=== PATIENT | female | born 1950 | race Caucasian/White ===

== ENCOUNTER 2016-12-29 16:24 | Emergency (ER) | payer MEDICARE ==
[2016-12-29 16:35] VITALS: TEMP 98.1
[2016-12-29] MEDS ORDERED: SODIUM CHLORIDE 0.9% 500 ML IV STA (17:28)
[2016-12-29] MEDS ORDERED: MECLIZINE 12.5 MG TAB PO STA (17:45)
[2016-12-29 18:12] LABS: Basophils % (A) 1 %; CH 21.6; CHCM 28.5; Eosinophils # (A) 0.1 k/uL (0-0.7); Eosinophils % (A) 2 %; HCT 29.6 % (34.0-46.0); HDW 3.33; HGB 8.4 gm/dL (11.4-16.0); Hypochromasia Marked; Luc # (Auto) 0.17; Luc % (Auto) 2; Lymphocytes # (A) 2.1 k/uL (1.0-4.8); Lymphocytes % (A) 29 %; MCH 21.6 pg (25.0-35.0); MCHC 28.3 g/dL (31.0-37.0); MCV 76.3 fL (80.0-100.0); Mean Platelet Volume 7.7; Microcytosis Slight; Monocytes # (A) 0.4 k/uL (0-1.0); Monocytes % (A) 5 %; Neutrophils # (A) 4.3 k/uL (1.3-7.7); Neutrophils % (A) 61 %; RBC 3.88 m/uL (3.80-5.40); RDW 14.7 % (11.5-15.5); WBC 7.1 k/uL (3.8-10.6); WBC (Perox) 6.93
[2016-12-29 18:21] LABS: ALT 19 U/L (9-52); AST 19 U/L (14-36); Alkaline Phosphatase 87 U/L (38-126); Anion Gap 11 mmol/L; Blood Urea Nitrogen 14 mg/dL (7-17); Calcium 9.1 mg/dL (8.4-10.2); Carbon Dioxide 21 mmol/L (22-30); Chloride 108 mmol/L (98-107); Glucose 103 mg/dL (74-99); Non-African American GFR(MDRD) >60 (>60 ml/min/1.73 sqM); Potassium 4.2 mmol/L (3.5-5.1); Sodium 140 mmol/L (137-145); Total Bilirubin 0.4 mg/dL (0.2-1.3); Total Protein 7.3 g/dL (6.3-8.2)
--- NOTE | 2016-12-29 18:29 | XR ---
EXAMINATION TYPE: XR chest 2V DATE OF EXAM: 12/29/2016 6:20 PM COMPARISON: NONE HISTORY: Hypertension TECHNIQUE: Frontal and lateral views of the chest are obtained. FINDINGS: Heart is normal. Lungs are clear of consolidation. There is small hiatal hernia. Thoracic aorta is atheromatous. There are no hilar masses. Bony thorax is intact. IMPRESSION: No active cardiopulmonary disease. Normal heart.
--- NOTE | 2016-12-29 18:32 | ED ---
Dizziness HPI - General Chief Complaint: Dizziness Stated Complaint: Dizziness Time Seen by Provider: 12/29/16 17:28 Source: patient, RN notes reviewed Mode of arrival: ambulatory Limitations: no limitations - History of Present Illness Initial Comments: 66-year-old female presented emergency department with chief complaint of intermittent dizziness. Patient states that she has noticed it she's had some dizziness and dizzy spells over the last week. She states associated with movements. She states sometimes when she stands up or if she walks and turns quickly she states she feels off balance. Patient denies any chest pain but states that she's had some shortness of breath. Patient states that she has a history of shortness of breath and does not feel much worse than usual. Patient denies any pleuritic chest pain him a headache, blurred vision or any focal weakness. Patient did have lab work by her primary care physician last week which revealed hemoglobin of 8.0. Patient states she has had a history of anemia with transfusion. Patient denies any melena, rectal bleeding, hematemesis copremesis. Patient states that she was just concerned because of the dizziness. She has no history of vertigo denies any sinus congestion - Related Data Home Medications Medication Instructions Recorded Confirmed LORazepam [Ativan] 1 mg PO HS 10/10/14 12/29/16 Potassium Chloride [Klor-Con 20] 20 meq PO DAILY 10/10/14 12/29/16 Atenolol [Tenormin] 25 mg PO DAILY 12/05/14 12/29/16 Losartan [Cozaar] 50 mg PO DAILY 12/29/16 12/29/16 PARoxetine HCL [Paxil] 40 mg PO DAILY 12/29/16 12/29/16 Previous Rx's Medication Instructions Recorded Ferrous Sulfate [Feosol] 325 mg PO DAILY #30 tab 12/29/16 Meclizine [Antivert] 25 mg PO TID PRN #15 tab 12/29/16 Allergies Allergy/AdvReac Type Severity Reaction Status Date / Time No Known Allergies Allergy Verified 12/29/16 18:08 Review of Systems ROS Statement: Those systems with pertinent positive or pertinent negative responses have been documented in the HPI. ROS Other: All systems not noted in ROS Statement are negative. Past Medical History Past Medical History: GERD/Reflux, Hypertension, Osteoarthritis (OA), Skin Disorder Additional Past Medical History / Comment(s): PAST HX ANEMIA, large lipoma right side of neck History of Any Multi-Drug Resistant Organisms: None Reported Past Surgical History: Joint Replacement Additional Past Surgical History / Comment(s): 10/13/14 Total L knee arthroplasty , BILAT BREAST LUMPECTOMIES(BENIGN). COLONOSCOPY Past Anesthesia/Blood Transfusion Reactions: No Reported Reaction Past Psychological History: Anxiety Additional Psychological History / Comment(s): Pt lives in a one level home. Pt is very independent. She drives a car. Smoking Status: Current some day smoker Past Alcohol Use History: Occasional Past Drug Use History: None Reported - Past Family History Brother(s) Family Medical History: Cancer Mother Family Medical History: Dementia, Hypertension Additional Family Medical History / Comment(s): parkinson's, Mother at age 81 or 82 yrs old. Father Family Medical History: No Reported History, Myocardial Infarction ([place]) Additional Family Medical History / Comment(s): Father at age 86yrs of [place] General Exam Limitations: no limitations General appearance: alert, in no apparent distress Head exam: Present: atraumatic, normocephalic, normal inspection Eye exam: Present: normal appearance, PERRL, EOMI. Absent: scleral icterus, conjunctival injection, periorbital swelling ENT exam: Present: normal exam, normal oropharynx, mucous membranes moist, TM's normal bilaterally Neck exam: Present: normal inspection, full ROM. Absent: tenderness, meningismus, lymphadenopathy Respiratory exam: Present: normal lung sounds bilaterally. Absent: respiratory distress, wheezes, rales, rhonchi, stridor Cardiovascular Exam: Present: regular rate, normal rhythm, normal heart sounds. Absent: systolic murmur, diastolic murmur, rubs, gallop, clicks GI/Abdominal exam: Present: soft, normal bowel sounds. Absent: distended, tenderness, guarding, rebound, rigid Neurological exam: Present: alert, oriented X3, CN II-XII intact, reflexes normal. Absent: motor sensory deficit Skin exam: Present: warm, dry, intact, normal color. Absent: rash Course Vital Signs 12/29/16 12/29/16 16:33 18:16 Temperature 98.1 F Pulse Rate 82 68 Respiratory 20 16 Rate Blood Pressure 137/66 172/72 O2 Sat by Pulse 100 99 Oximetry EKG Findings - EKG Comments: EKG Findings:: EKG performed at 17:57 normal sinus rhythm with a rate of 66, MA interval 130, QRS duration 86, QT/QTC 424/444 Medical Decision Making - Medical Decision Making 66-year-old female presented for airman dizziness, fatigue. Patient is feeling better after Antivert and has ambulated well here. Patient's hemoglobin is 8.4 up from a 8.1 last week. Patient appears [place] Sick anemia. She'll be started on iron at this time. Patient also has vitamin D insufficiency. Patient is advised to take vitamin D3. Patient will be prescribed iron at this time. Patient's will be discharged with Antivert and will follow-up with Dr. Bellamy at the beginning of next week. Return parameters were discussed family in the room agrees to plan. - Lab Data Result diagrams: 12/29/16 18:00 12/29/16 18:00 Lab Results 12/29/16 12/29/16 12/29/16 Range/Units 18:00 18:00 18:00 WBC 7.1 (3.8-10.6) k/uL RBC 3.88 (3.80-5.40) m/uL Hgb 8.4 L (11.4-16.0) gm/dL Hct 29.6 L (34.0-46.0) % MCV 76.3 L (80.0-100.0) fL MCH 21.6 L (25.0-35.0) pg MCHC 28.3 L (31.0-37.0) g/dL RDW 14.7 (11.5-15.5) % Plt Count 359 (150-450) k/uL Neutrophils % 61 % Lymphocytes % 29 % Monocytes % 5 % Eosinophils % 2 % Basophils % 1 % Neutrophils # 4.3 (1.3-7.7) k/uL Lymphocytes # 2.1 (1.0-4.8) k/uL Monocytes # 0.4 (0-1.0) k/uL Eosinophils # 0.1 (0-0.7) k/uL Basophils # 0.0 (0-0.2) k/uL Hypochromasia Marked Microcytosis Slight D-Dimer 0.48 (<0.60) mg/L FEU Sodium 140 (137-145) mmol/L Potassium 4.2 (3.5-5.1) mmol/L Chloride 108 H (98-107) mmol/L Carbon Dioxide 21 L (22-30) mmol/L Anion Gap 11 mmol/L BUN 14 (7-17) mg/dL Creatinine 0.76 (0.52-1.04) mg/dL Est GFR (MDRD) Af Amer >60 (>60 ml/min/1.73 sqM) Est GFR (MDRD) Non-Af >60 (>60 ml/min/1.73 sqM) Glucose 103 H (74-99) mg/dL Calcium 9.1 (8.4-10.2) mg/dL Total Bilirubin 0.4 (0.2-1.3) mg/dL AST 19 (14-36) U/L ALT 19 (9-52) U/L Alkaline Phosphatase 87 (38-126) U/L Troponin I (0.000-0.034) ng/mL Total Protein 7.3 (6.3-8.2) g/dL Albumin 4.3 (3.5-5.0) g/dL Urine Color Urine Appearance (Clear) Urine pH (5.0-8.0) Ur Specific [place] (1.001-1.035) Urine Protein (Negative) Urine Glucose (UA) (Negative) Urine Ketones (Negative) Urine Blood (Negative) Urine Nitrite (Negative) Urine Bilirubin (Negative) Urine Urobilinogen (<2.0) mg/dL Ur Leukocyte Esterase (Negative) Urine RBC (0-5) /hpf Urine WBC (0-5) /hpf Ur Squamous Epith Cells (0-4) /hpf Amorphous Sediment (None) /hpf Urine Bacteria (None) /hpf Urine Mucus (None) /hpf 12/29/16 12/29/16 Range/Units 18:00 18:15 WBC (3.8-10.6) k/uL RBC (3.80-5.40) m/uL Hgb (11.4-16.0) gm/dL Hct (34.0-46.0) % MCV (80.0-100.0) fL MCH (25.0-35.0) pg MCHC (31.0-37.0) g/dL RDW (11.5-15.5) % Plt Count (150-450) k/uL Neutrophils % % Lymphocytes % % Monocytes % % Eosinophils % % Basophils % % Neutrophils # (1.3-7.7) k/uL Lymphocytes # (1.0-4.8) k/uL Monocytes # (0-1.0) k/uL Eosinophils # (0-0.7) k/uL Basophils # (0-0.2) k/uL Hypochromasia Microcytosis D-Dimer (<0.60) mg/L FEU Sodium (137-145) mmol/L Potassium (3.5-5.1) mmol/L Chloride (98-107) mmol/L Carbon Dioxide (22-30) mmol/L Anion Gap mmol/L BUN (7-17) mg/dL Creatinine (0.52-1.04) mg/dL Est GFR (MDRD) Af Amer (>60 ml/min/1.73 sqM) Est GFR (MDRD) Non-Af (>60 ml/min/1.73 sqM) Glucose (74-99) mg/dL Calcium (8.4-10.2) mg/dL Total Bilirubin (0.2-1.3) mg/dL AST (14-36) U/L ALT (9-52) U/L Alkaline Phosphatase (38-126) U/L Troponin I <0.012 (0.000-0.034) ng/mL Total Protein (6.3-8.2) g/dL Albumin (3.5-5.0) g/dL Urine Color Light Yellow Urine Appearance Clear (Clear) Urine pH 6.0 (5.0-8.0) Ur Specific [place] 1.004 (1.001-1.035) Urine Protein Negative (Negative) Urine Glucose (UA) Negative (Negative) Urine Ketones Negative (Negative) Urine Blood Negative (Negative) Urine Nitrite Negative (Negative) Urine Bilirubin Negative (Negative) Urine Urobilinogen <2.0 (<2.0) mg/dL Ur Leukocyte Esterase Trace H (Negative) Urine RBC 1 (0-5) /hpf Urine WBC 5 (0-5) /hpf Ur Squamous Epith Cells 4 (0-4) /hpf Amorphous Sediment Rare H (None) /hpf Urine Bacteria Many H (None) /hpf Urine Mucus Rare H (None) /hpf Disposition Clinical Impression: Vertigo, Anemia, Vitamin D insufficiency Disposition: HOME SELF-CARE Condition: Stable Instructions: Dizziness (ED) Additional Instructions: Please return to the Emergency Department if symptoms worsen or any other concerns. Take [id number] vitamin D3. Prescriptions: Ferrous Sulfate [Feosol] 325 mg PO DAILY #30 tab Meclizine [Antivert] 25 mg PO TID PRN #15 tab PRN Reason: Vertigo Time of Disposition: 19:23
[2016-12-29 18:45] LABS: Amorphous Sediment,Urine Rare /hpf; Appearance,Urine Clear (Clear); Bacteria,Urine Many /hpf; Bilirubin,Urine Negative (Negative); Glucose,Urine (UA) Negative (Negative); Ketones,Urine Negative (Negative); Leukocyte Esterase,Urine Trace (Negative); Mucus,Urine Rare /hpf; Nitrite,Urine Negative (Negative); Particle Count 2380; Protein,Urine Negative (Negative); RBC,Urine 1 /hpf (0-5); Specific Gravity,Urine 1.004 (1.001-1.035); Squamous Epithelial Cell,Urine 4 /hpf (0-4); UA Billing (MACRO vs. MICRO) MICRO; Urobilinogen,Urine <2.0 mg/dL (<2.0); WBC,Urine 5 /hpf (0-5)
[2016-12-29 19:22] VITALS: BP 164/71; PULSE 71; RESP 18
== END 2016-12-29 19:31 | disposition home or self-care (01) ==
LOC: EC 16:24
DX: D64.9 Anemia, unspecified (principal); E55.9 Vitamin D deficiency, unspecified; I10 Essential (primary) hypertension; F41.9 Anxiety disorder, unspecified; Z79.899 Other long term (current) drug therapy; F17.200 Nicotine dependence, unspecified, uncomplicated
CPT/HCPCS: 36415; 71020; 80053; 81001; 84484; 85025; 85379; 93005; 96360; 99284

== ENCOUNTER 2018-01-17 08:39 | Day surgery (SDC) | payer MEDICARE ==
[2018-01-16 14:14] VITALS: BMI 28.3
[~2018-01-17 08:39] MED LIST: BUPIVACAINE (PF) 0.5% 30 ML VIAL SQ ONE; DEXAMETHASONE SOD PHOSPHATE 10 MG/ML 1 ML VIAL IV ONE; HEPARIN SODIUM,PORCINE 5,000 UNIT/ML 1 ML VIAL SQ ONE; HYDROmorphone 0.5 MG/0.5 ML SYRINGE IVP PRN; LACTATED RINGERS 1,000 ML IV SCH; MORPHINE SULFATE 2 MG/ML SYRINGE IV PRN; ONDANSETRON 4 MG/2 ML VIAL IVP ONE; ONDANSETRON 4 MG/2 ML VIAL IVP PRN; Pre Op ABX Message 1 EACH MISC MISCELLANE ONE
[2018-01-17] MEDS ORDERED: LACTATED RINGERS 1,000 ML IV ONE (08:51)
[2018-01-17 08:52] VITALS: TEMP 98
--- NOTE | 2018-01-17 09:20 | P.GSHP ---
History of Present Illness H&P Date: 01/17/18 Chief Complaint: Left gluteal lipoma This is a 67-year-old female who is developed a left gluteal mass. Patient presents today for excision of left gluteal lipoma. Past Medical History Past Medical History: GERD/Reflux, Hypertension, Osteoarthritis (OA), Skin Disorder Additional Past Medical History / Comment(s): PAST HX ANEMIA, History of Any Multi-Drug Resistant Organisms: None Reported Past Surgical History: Joint Replacement Additional Past Surgical History / Comment(s): 10/13/14 Total L knee arthroplasty , BILAT BREAST LUMPECTOMIES(BENIGN). COLONOSCOPY; Lipoma removed L side of neck Past Anesthesia/Blood Transfusion Reactions: No Reported Reaction Smoking Status: Current some day smoker - Past Family History Brother(s) Family Medical History: Cancer Mother Family Medical History: Dementia, Hypertension Additional Family Medical History / Comment(s): parkinson's, Mother at age 81 or 82 yrs old. Father Family Medical History: No Reported History, Myocardial Infarction ([place]) Additional Family Medical History / Comment(s): Father at age 86yrs of [place] Medications and Allergies Home Medications Medication Instructions Recorded Confirmed Type LORazepam [Ativan] 1 mg PO HS 10/10/14 01/16/18 History Potassium Chloride [Klor-Con 20] 20 meq PO DAILY 10/10/14 01/16/18 History Atenolol [Tenormin] 25 mg PO HS 12/05/14 01/16/18 History Losartan [Cozaar] 50 mg PO DAILY 12/29/16 01/16/18 History Meclizine [Antivert] 25 mg PO TID PRN #15 tab 12/29/16 01/16/18 Rx PARoxetine HCL [Paxil] 40 mg PO DAILY 12/29/16 01/16/18 History Allergies Allergy/AdvReac Type Severity Reaction Status Date / Time No Known Allergies Allergy Verified 01/16/18 14:07 Surgical - Exam Vital Signs Temp Pulse Resp BP Pulse Ox 98.0 F 89 18 176/81 99 01/17/18 08:51 01/17/18 08:51 01/17/18 08:51 01/17/18 08:51 01/17/18 08:51 - General well developed, no distress - Eyes PERRL - ENT normal pinna - Neck no masses - Respiratory normal expansion - Cardiovascular Rhythm: regular - Abdomen Abdomen: soft - Integumentary 5 cm left gluteal lipoma in the upper outer quadrant Assessment and Plan Assessment: Left gluteal lipoma. We'll perform excision.
[2018-01-17] MEDS ORDERED: MIDAZOLAM 2 MG/2 ML VIAL ONE (09:27)
[2018-01-17] MEDS ORDERED: fentaNYL (PF) 50 MCG/ML 2 ML AMP ONE (09:27)
[2018-01-17] MEDS ORDERED: PROPOFOL 10 MG/ML 20 ML VIAL IV ONE (09:27)
[2018-01-17] MEDS ORDERED: SODIUM CHLORIDE 0.9% 50 ML with ceFAZolin 1,000 MG IV ONE ×2 (09:36)
--- NOTE | 2018-01-17 10:09 | P.OP ---
Date of Procedure: 01/17/18 Preoperative Diagnosis: Left gluteal lipoma Postoperative Diagnosis: Left gluteal lipoma Procedure(s) Performed: Excision of left gluteal lipoma Anesthesia: MAC Surgeon: Mykel Clayton Estimated Blood Loss (ml): 5 Pathology: other (Left gluteal lipoma) Condition: stable Disposition: PACU Description of Procedure: The patient's placed on the operative table in the lateral position. She received IV sedation. Her left buttock was prepped and draped usual sterile fashion. The skin was anesthetized 1% local Xylocaine. Using a 15 blade skin was incised. Then using electrocautery and sharp and blunt dissection the gluteal lipoma was dissected free. The lipoma measured approximately 5 x 10 cm. The Bovie hemostasis. Skin was closed interrupted 3-0 Monocryl suture. Dermabond was applied. Patient top procedure well and was sent to recovery in stable condition.
[2018-01-17 10:33] VITALS: BP 122/79; PULSE 80; RESP 16
== END 2018-01-17 10:58 | disposition home or self-care (01) ==
LOC: OR 08:39
PROVIDERS: ATTEND Surgery
DX: D17.1 Benign lipomatous neoplasm of skin and subcutaneous tissue of trunk (principal); K21.9 Gastro-esophageal reflux disease without esophagitis; I10 Essential (primary) hypertension; F17.210 Nicotine dependence, cigarettes, uncomplicated; F41.9 Anxiety disorder, unspecified; M19.90 Unspecified osteoarthritis, unspecified site; Z79.899 Other long term (current) drug therapy
CPT/HCPCS: 88304; 11406; J2250; J1644; J1100; J2405; J3010; J0690; J2704

== ENCOUNTER 2018-02-16 12:02 | Inpatient (IN) | payer MEDICARE ==
[2018-02-16] MEDS ORDERED: SODIUM CHLORIDE 0.9% 500 ML IV STA (12:28)
--- NOTE | 2018-02-16 12:33 | ED ---
General Adult HPI - General Source: patient, RN notes reviewed Mode of arrival: ambulatory Limitations: no limitations <Dariusz Johnson - Last Filed: 02/16/18 14:40> <Adria Morales - Last Filed: 02/16/18 19:00> - General Chief complaint: Recheck/Abnormal Lab/Rx Stated complaint: Abnormal Labs Time Seen by Provider: 02/16/18 12:15 - History of Present Illness Initial comments: This is a 67-year-old female presents emergency Department complaining of feeling dizzy and Shortness of breath lately. Patient states his been getting progressively worse. Patient states she's also had some black stools for the last couple of months. Patient states she has been anemic many years ago but does not know why. Patient denies any blood thinners. Patient denies any abdominal pain. Patient states she is short of breath but has no chest pain and no palpitations. Patient states heShortness of breath gets worse with exertion. Patient denies any palpitations. Patient denies any recent fever chills or cough. Patient denies headache. Patient denies lightheadedness currently but she gets up she feels as though she becomes very dizzy. (Dariusz Johnson) - Related Data Home Medications Medication Instructions Recorded Confirmed LORazepam [Ativan] 1 mg PO HS 10/10/14 02/16/18 Potassium Chloride [Klor-Con 20] 20 meq PO DAILY 10/10/14 02/16/18 Atenolol [Tenormin] 25 mg PO HS 12/05/14 02/16/18 Losartan [Cozaar] 50 mg PO DAILY 12/29/16 02/16/18 PARoxetine HCL [Paxil] 40 mg PO DAILY 12/29/16 02/16/18 Aspirin 81 mg PO DAILY 02/16/18 02/16/18 Ibuprofen [Motrin Ib] 400 mg PO Q4H PRN 02/16/18 02/16/18 Allergies Allergy/AdvReac Type Severity Reaction Status Date / Time acetaminophen AdvReac Unknown Verified 02/16/18 12:32 [From Darvocet-N] propoxyphene AdvReac Unknown Verified 02/16/18 12:32 [From Darvocet-N] Review of Systems ROS Other: All systems not noted in ROS Statement are negative. <Dariusz Johnson - Last Filed: 02/16/18 14:40> ROS Other: All systems not noted in ROS Statement are negative. <Adria Morales - Last Filed: 02/16/18 19:00> ROS Statement: Those systems with pertinent positive or pertinent negative responses have been documented in the HPI. Past Medical History Past Medical History: GERD/Reflux, Hypertension, Osteoarthritis (OA), Skin Disorder Additional Past Medical History / Comment(s): PAST HX ANEMIA, History of Any Multi-Drug Resistant Organisms: None Reported Past Surgical History: Joint Replacement Additional Past Surgical History / Comment(s): 10/13/14 Total L knee arthroplasty , BILAT BREAST LUMPECTOMIES(BENIGN). COLONOSCOPY; Lipoma removed L side of neck Past Anesthesia/Blood Transfusion Reactions: No Reported Reaction Past Psychological History: Anxiety Smoking Status: Former smoker Past Alcohol Use History: Rare Past Drug Use History: None Reported - Past Family History Brother(s) Family Medical History: Cancer Mother Family Medical History: Dementia, Hypertension Additional Family Medical History / Comment(s): parkinson's, Mother at age 81 or 82 yrs old. Father Family Medical History: No Reported History, Myocardial Infarction ([place]) Additional Family Medical History / Comment(s): Father at age 86yrs of [place] <Dariusz Johnson - Last Filed: 02/16/18 14:40> General Exam Limitations: no limitations <Dariusz Johnson - Last Filed: 02/16/18 14:40> <AndrewAdria - Last Filed: 02/16/18 19:00> - General Exam Comments Initial Comments: GENERAL: Patient is well-developed and well-nourished. Patient is nontoxic and well- hydrated and is in Mild distress. ENT: Neck is soft and supple. No significant lymphadenopathy is noted. Oropharynx is clear. Moist mucous membranes. Neck has full range of motion without eliciting any pain. EYES: The sclera were anicteric and conjunctiva were pink and moist. Extraocular movements were intact and pupils were equal round and reactive to light. Eyelids were unremarkable. PULMONARY: Unlabored respirations. Good breath sounds bilaterally. No audible rales rhonchi or wheezing was noted. CARDIOVASCULAR: There is a regular rate and rhythm without any murmurs gallops or rubs. ABDOMEN: Soft and nontender with normal bowel sounds. No palpable organomegaly was noted. There is no palpable pulsatile mass. SKIN: Skin is clear with no lesions or rashes and otherwise unremarkable. NEUROLOGIC: Patient is alert and oriented x3. Cranial nerves II through XII are grossly intact. Motor and sensory are also intact. Normal speech, volume and content. Symmetrical smile. MUSCULOSKELETAL: Normal extremities with adequate strength and full range of motion. No lower extremity swelling or edema. No calf tenderness. LYMPHATICS: No significant lymphadenopathy is noted PSYCHIATRIC: Normal psychiatric evaluation. Normal interpersonal interactions appears functionally intact in deals appropriately with others. No signs of depression. No signs of anxiety. (Dariusz Johnson) Vital Signs 02/16/18 02/16/18 02/16/18 12:15 12:51 14:09 Temperature 98.4 F Pulse Rate 96 80 94 Respiratory 18 18 18 Rate Blood Pressure 120/69 156/72 168/73 O2 Sat by Pulse 96 96 94 L Oximetry 02/16/18 02/16/18 02/16/18 15:07 15:17 15:47 Temperature 98.8 F 98.2 F 98.1 F Pulse Rate 75 73 82 Respiratory 18 16 18 Rate Blood Pressure 173/79 168/77 168/77 O2 Sat by Pulse 99 100 99 Oximetry 02/16/18 17:15 Temperature 98.4 F Pulse Rate 77 Respiratory 18 Rate Blood Pressure 160/72 O2 Sat by Pulse 100 Oximetry Medical Decision Making - Lab Data Result diagrams: 02/16/18 12:39 02/16/18 12:39 <Dariusz Johnson - Last Filed: 02/16/18 14:40> - Lab Data Result diagrams: 02/16/18 12:39 02/16/18 12:39 <Adria Morales - Last Filed: 02/16/18 19:00> - Medical Decision Making Patient is anemic at 6.6 and ordered 1 unit of packed red blood cells I spoke with because he agreed to admit the patient admitted the patient I wrote admitting orders I continued CBCs every 6 hours tract hemoglobin. (Dariusz Johnson) - Lab Data Lab Results 02/16/18 02/16/18 02/16/18 Range/Units 12:39 12:39 12:39 WBC 7.2 (3.8-10.6) k/uL RBC 3.35 L (3.80-5.40) m/uL Hgb 6.6 L* (11.4-16.0) gm/dL Hct 23.7 L (34.0-46.0) % MCV 70.6 L (80.0-100.0) fL MCH 19.5 L (25.0-35.0) pg MCHC 27.7 L (31.0-37.0) g/dL RDW 15.5 (11.5-15.5) % Plt Count 415 (150-450) k/uL Neutrophils % 66 % Lymphocytes % 20 % Monocytes % 8 % Eosinophils % 4 % Basophils % 1 % Neutrophils # 4.7 (1.3-7.7) k/uL Lymphocytes # 1.5 (1.0-4.8) k/uL Monocytes # 0.5 (0-1.0) k/uL Eosinophils # 0.3 (0-0.7) k/uL Basophils # 0.0 (0-0.2) k/uL Hypochromasia Marked Poikilocytosis Slight Microcytosis Moderate PT (9.0-12.0) sec INR (<1.2) APTT (22.0-30.0) sec Sodium 140 (137-145) mmol/L Potassium 4.2 (3.5-5.1) mmol/L Chloride 110 H (98-107) mmol/L Carbon Dioxide 17 L (22-30) mmol/L Anion Gap 13 mmol/L BUN 13 (7-17) mg/dL Creatinine 0.84 (0.52-1.04) mg/dL Est GFR (CKD-EPI)AfAm 82 (>60 ml/min/1.73 sqM) Est GFR (CKD-EPI)NonAf 71 (>60 ml/min/1.73 sqM) Glucose 104 H (74-99) mg/dL Calcium 8.6 (8.4-10.2) mg/dL Magnesium 1.9 (1.6-2.3) mg/dL Total Bilirubin 0.2 (0.2-1.3) mg/dL AST 21 (14-36) U/L ALT 18 (9-52) U/L Alkaline Phosphatase 67 (38-126) U/L Total Creatine Kinase 33 (30-135) U/L CK-MB (CK-2) 0.3 (0.0-2.4) ng/mL CK-MB (CK-2) Rel Index 0.9 Troponin I <0.012 (0.000-0.034) ng/mL Total Protein 5.9 L (6.3-8.2) g/dL Albumin 3.6 (3.5-5.0) g/dL Stool Occult Blood (Negative) Blood Type Blood Type Recheck Antibody Screen Crossmatch Spec Expiration Date 02/16/18 02/16/18 02/16/18 Range/Units 12:39 12:39 13:48 WBC (3.8-10.6) k/uL RBC (3.80-5.40) m/uL Hgb (11.4-16.0) gm/dL Hct (34.0-46.0) % MCV (80.0-100.0) fL MCH (25.0-35.0) pg MCHC (31.0-37.0) g/dL RDW (11.5-15.5) % Plt Count (150-450) k/uL Neutrophils % % Lymphocytes % % Monocytes % % Eosinophils % % Basophils % % Neutrophils # (1.3-7.7) k/uL Lymphocytes # (1.0-4.8) k/uL Monocytes # (0-1.0) k/uL Eosinophils # (0-0.7) k/uL Basophils # (0-0.2) k/uL Hypochromasia Poikilocytosis Microcytosis PT 9.9 (9.0-12.0) sec INR 1.0 (<1.2) APTT 20.6 L (22.0-30.0) sec Sodium (137-145) mmol/L Potassium (3.5-5.1) mmol/L Chloride (98-107) mmol/L Carbon Dioxide (22-30) mmol/L Anion Gap mmol/L BUN (7-17) mg/dL Creatinine (0.52-1.04) mg/dL Est GFR (CKD-EPI)AfAm (>60 ml/min/1.73 sqM) Est GFR (CKD-EPI)NonAf (>60 ml/min/1.73 sqM) Glucose (74-99) mg/dL Calcium (8.4-10.2) mg/dL Magnesium (1.6-2.3) mg/dL Total Bilirubin (0.2-1.3) mg/dL AST (14-36) U/L ALT (9-52) U/L Alkaline Phosphatase (38-126) U/L Total Creatine Kinase (30-135) U/L CK-MB (CK-2) (0.0-2.4) ng/mL CK-MB (CK-2) Rel Index Troponin I (0.000-0.034) ng/mL Total Protein (6.3-8.2) g/dL Albumin (3.5-5.0) g/dL Stool Occult Blood Negative (Negative) Blood Type O Positive Blood Type Recheck No Antibody Screen NEGATIVE Crossmatch See Detail Spec Expiration Date 02/19/2018 - 5179 Critical Care Time Critical Care Time: Yes Total Critical Care Time: 35 <Dariusz Johnson - Last Filed: 02/16/18 14:40> Disposition Time of Disposition: 14:40 <Dariusz Johnson - Last Filed: 02/16/18 14:40> <Adria Morales - Last Filed: 02/16/18 19:00> Clinical Impression: Anemia Disposition: ADMITTED IP TO THIS [facility] Condition: Stable Referrals: Mikhail Bellamy DO [Primary Care Provider] - 1-2 days
[2018-02-16 13:12] LABS: Prothrombin Time 9.9 sec (9.0-12.0)
[2018-02-16 13:13] LABS: Albumin 3.6 g/dL (3.5-5.0); Calcium 8.6 mg/dL (8.4-10.2); Magnesium 1.9 mg/dL (1.6-2.3); Potassium 4.2 mmol/L (3.5-5.1); Total Bilirubin 0.2 mg/dL (0.2-1.3); Total Protein 5.9 g/dL (6.3-8.2)
[2018-02-16 13:16] LABS: Basophils % (A) 1 %; Eosinophils # (A) 0.3 k/uL (0-0.7); Eosinophils % (A) 4 %; HCT 23.7 % (34.0-46.0); Hypochromasia Marked; Lymphocytes # (A) 1.5 k/uL (1.0-4.8); Lymphocytes % (A) 20 %; MCH 19.5 pg (25.0-35.0); MCHC 27.7 g/dL (31.0-37.0); MCV 70.6 fL (80.0-100.0); Mean Platelet Volume 6.5; Microcytosis Moderate; Monocytes # (A) 0.5 k/uL (0-1.0); Monocytes % (A) 8 %; Neutrophils # (A) 4.7 k/uL (1.3-7.7); Neutrophils % (A) 66 %; Partial Thromboplastin Time 20.6 sec (22.0-30.0); Platelet Count 415 k/uL (150-450); Poikilocytosis Slight; RBC 3.35 m/uL (3.80-5.40); RDW 15.5 % (11.5-15.5); WBC 7.2 k/uL (3.8-10.6)
[2018-02-16 13:22] LABS: Creatine Kinase 33 U/L (30-135)
[2018-02-16 13:26] LABS: HGB 6.6 gm/dL (11.4-16.0)
[2018-02-16 13:34] LABS: Creatine Kinase MB 0.3 ng/mL (0.0-2.4); Troponin I <0.012 ng/mL (0.000-0.034)
[2018-02-16] MEDS ORDERED: LOSARTAN 50 MG TAB PO STA (19:32)
[2018-02-16 19:45] LABS: Anisocytosis Slight; Basophils % (A) 1 %; Eosinophils # (A) 0.3 k/uL (0-0.7); Eosinophils % (A) 4 %; HCT 27.5 % (34.0-46.0); HGB 7.9 gm/dL (11.4-16.0); Hypochromasia Marked; Lymphocytes # (A) 2.1 k/uL (1.0-4.8); Lymphocytes % (A) 24 %; MCH 20.7 pg (25.0-35.0); MCHC 28.7 g/dL (31.0-37.0); MCV 72.1 fL (80.0-100.0); Mean Platelet Volume 6.2; Microcytosis Moderate; Monocytes # (A) 0.6 k/uL (0-1.0); Monocytes % (A) 7 %; Neutrophils # (A) 5.5 k/uL (1.3-7.7); Neutrophils % (A) 63 %; Platelet Count 388 k/uL (150-450); Poikilocytosis Marked; RBC 3.81 m/uL (3.80-5.40); RDW 16.1 % (11.5-15.5); WBC 8.8 k/uL (3.8-10.6)
[2018-02-16] MEDS ORDERED: LORazepam 1 MG TAB PO SCH (23:45)
[2018-02-16] MEDS ORDERED: PARoxetine 20 MG TAB PO SCH (23:45)
[2018-02-16] MEDS ORDERED: ACETAMINOPHEN TAB 325 MG TAB PO PRN (23:50)
[2018-02-17] MEDS: ATENOLOL 25 MG TAB PO SCH ×2 (01:03→20:39)
[2018-02-17] MEDS: DEXTROSE 5% IN WATER 1,000 ML IV SCH ×2 (01:11→20:39)
[2018-02-17] MEDS ORDERED: PARoxetine 20 MG TAB PO SCH (02:56)
--- NOTE | 2018-02-17 10:32 | CONS ---
CONSULTATION REQUESTING PHYSICIAN: Dr. Mikhail Bellamy REASON FOR CONSULTATION: Severe symptomatic microcytic hypochromic anemia. HISTORY OF PRESENT ILLNESS: The patient is a 67-year-old pleasant white male admitted to the hospital because of progressive weakness, fatigue, tiredness for the last 3 months duration. She has been having intermittent episodes of dizzy spells, crampy lower abdominal pain and dark- colored stools on and off for the last couple of months duration. She has some abdominal discomfort. Has been taking some Motrin and Excedrin for degenerative joint disease. Because of her symptoms, she came into the emergency room and had some labs done in the ER that showed severe anemia with a hemoglobin of 6.6 g/dL, received 2 units of blood transfusion. Hemoglobin is 7.9. She has severe microcytosis suggestive of iron deficiency anemia. The patient recalls having endoscopy and colonoscopy more than 10 years ago. She denies any prior history of peptic ulcer disease. No family history of colorectal neoplasia. PAST MEDICAL HISTORY: Significant for hypertension, anxiety, degenerative joint disease. MEDICATIONS: At home Motrin, K-Bettina, Paxil, Cozaar, Ativan, Tenormin, and aspirin. ALLERGIES: To DARVOCET. SOCIAL HISTORY: No smoking or alcohol use. FAMILY HISTORY: Mother has hypertension. Father had coronary artery disease and [place]. PAST SURGICAL HISTORY: Total knee arthroplasty, bilateral breast lumpectomy, colonoscopy 10 years ago. Lipoma of the left side of the neck removed. REVIEW OF SYSTEMS: Cardiopulmonary: No chest pain, shortness of breath. Genitourinary: No dysuria or hematuria. Musculoskeletal: Unremarkable. Skin: Unremarkable. Endocrine: Unremarkable. Psychiatric: Unremarkable. Neurology unremarkable. ENT vision unremarkable. Constitutional: No recent weight loss. No fever, chills, night sweats. Except she has been complaining of fatigue and weakness. PHYSICAL EXAMINATION: Blood pressure 183/76, pulse 74, temperature 98.8. HEENT examination unremarkable. Conjunctivae pink. Sclerae anicteric. Oral cavity no lesions. Neck no jugular venous distention or lymph node enlargement. Chest was clear to auscultation. HEART: Regular rate and rhythm. ABDOMEN: Soft. Bowel sounds are positive. No organomegaly. Extremities: No pedal edema. Skin no rashes. NEUROLOGIC: Alert and oriented x3. No focal deficits. LABS: Done from today, WBC is 8.8, yesterday was 6.6, MCV 70, platelets 4185, PTT INR is within normal limits. Basic metabolic panel is within normal limits. BUN 13, creatinine 0.8. Today, hemoglobin is 7.9. IMPRESSION: Severe microcytic hypochromic anemia, most likely secondary to occult gastrointestinal blood loss/iron deficiency anemia. Clinically no active bleeding. She has been having intermittent dark-colored stools for the last 3 months duration. Last EGD colonoscopy was more than 10 years ago. RECOMMENDATIONS: Proceed with EGD and colonoscopy tomorrow. Discussed with the patient risks, benefits, and complications of the procedure and she is agreeable to it. The family is present at the bedside. All questions answered. Thank you for this consultation. DUSTIN / IJN: [id number] /
[2018-02-17 11:25] LABS: Anisocytosis Slight; Basophils % (A) 1 %; Eosinophils # (A) 0.3 k/uL (0-0.7); Eosinophils % (A) 5 %; HCT 25.9 % (34.0-46.0); HGB 7.7 gm/dL (11.4-16.0); Hypochromasia Marked; Lymphocytes # (A) 1.1 k/uL (1.0-4.8); Lymphocytes % (A) 18 %; MCH 20.8 pg (25.0-35.0); MCHC 29.6 g/dL (31.0-37.0); MCV 70.3 fL (80.0-100.0); Mean Platelet Volume 7.4; Microcytosis Moderate; Monocytes # (A) 0.4 k/uL (0-1.0); Monocytes % (A) 7 %; Neutrophils # (A) 4.2 k/uL (1.3-7.7); Neutrophils % (A) 69 %; Platelet Count 361 k/uL (150-450); Poikilocytosis Marked; RBC 3.69 m/uL (3.80-5.40); RDW 16.2 % (11.5-15.5); WBC 6.1 k/uL (3.8-10.6)
[2018-02-17] MEDS ORDERED: ACETAMINOPHEN TAB 500 MG TAB PO PRN (11:59)
--- NOTE | 2018-02-17 15:52 | P.HPIM ---
History of Present Illness 67-year-old female likely with the generalized fatigue tiredness going on for 3 months and is a path spells patient had on and off dark-colored stools multiple with crampy abdominal pain found to have hemoglobin of 6.6 patient takes Motrin and Excedrin for degenerative joint disease patient hemoglobin was 6.6 on admission patient received 2 units of blood transfusion. Patient's hemoglobin is presently at 7.9 no more bowel movements today patient has a severe iron deficiency anemia from acute GI bleed probably from the peptic ulcer disease postdated by excess use of nonsteroidal anti-inflammatories. Patient is also on baby aspirin. Patient does not have any coronary vascular disease or cerebral disease or peripheral vascular disease. Patient feels better now still complaining of minimal lightheadedness. Patient will undergo upper GI endoscopy tomorrow. Patient is on IV Protonix presently. Review of Systems Constitutional: As mentioned in HPI Cardio vascular: denied any chest pain, palpitations Gastrointestinal denied any nausea vomiting Pulmonary: Denied any shortness of breath cough Neurologic denied any new focal deficits Past Medical History Past Medical History: GERD/Reflux, Hypertension, Osteoarthritis (OA) Additional Past Medical History / Comment(s): PAST HX ANEMIA History of Any Multi-Drug Resistant Organisms: None Reported Past Surgical History: Joint Replacement Additional Past Surgical History / Comment(s): 10/13/14 Total L knee arthroplasty , BILAT BREAST LUMPECTOMIES(BENIGN). COLONOSCOPY; Lipomas removed L side of neck, lower back Past Anesthesia/Blood Transfusion Reactions: No Reported Reaction Past Psychological History: Anxiety Additional Psychological History / Comment(s): Pt lives in a one level home. Pt is very independent. She drives a car. Smoking Status: Former smoker Past Alcohol Use History: Rare Additional Past Alcohol Use History / Comment(s): has smoked for about 15 yrs; cutting down; smokes 1 pack q 1- 2 weeks Past Drug Use History: None Reported - Past Family History Brother(s) Family Medical History: Cancer Mother Family Medical History: Dementia, Hypertension Additional Family Medical History / Comment(s): parkinson's, Mother at age 81 or 82 yrs old. Father Family Medical History: No Reported History, Myocardial Infarction (ID) Additional Family Medical History / Comment(s): Father at age 86 yrs of ID Medications and Allergies Home Medications Medication Instructions Recorded Confirmed Type LORazepam [Ativan] 1 mg PO HS 10/10/14 02/16/18 History Potassium Chloride [Klor-Con 20] 20 meq PO DAILY 10/10/14 02/16/18 History Atenolol [Tenormin] 25 mg PO HS 12/05/14 02/16/18 History Losartan [Cozaar] 50 mg PO DAILY 12/29/16 02/16/18 History PARoxetine HCL [Paxil] 40 mg PO DAILY 12/29/16 02/16/18 History Aspirin 81 mg PO DAILY 02/16/18 02/16/18 History Ibuprofen [Motrin Ib] 400 mg PO Q4H PRN 02/16/18 02/16/18 History Allergies Allergy/AdvReac Type Severity Reaction Status Date / Time acetaminophen AdvReac Unknown Verified 02/16/18 12:32 [From Darvocet-N] propoxyphene AdvReac Unknown Verified 02/16/18 12:32 [From Darvocet-N] Physical Exam Vitals: Vital Signs Temp Pulse Pulse Resp BP BP Pulse Ox 02/17/18 14:57 97.8 F 63 18 175/72 98 02/17/18 08:00 62 20 02/17/18 06:00 98.3 F 62 20 138/62 98 02/16/18 23:30 98.5 F 97 20 144/67 96 02/16/18 21:15 98.8 F 74 20 183/76 96 02/16/18 20:10 84 18 173/77 97 02/16/18 19:12 98 02/16/18 19:09 98.5 F 82 18 195/88 97 02/16/18 17:15 98.4 F 77 18 160/72 100 Intake and Output 02/17/18 02/17/18 02/17/18 06:59 14:59 22:59 Intake Total 0 Balance 0 Intake: Oral 0 Other: Voiding Method Toilet # Voids 1 3 # Bowel Movements 0 PHYSICAL EXAMINATION: GENERAL: The patient is alert and oriented x3, not in any acute distress. Well developed, well nourished. HEENT: Pupils are round and equally reacting to light. EOMI. No scleral icterus. Does have conjunctival pallor. Normocephalic, atraumatic. No pharyngeal erythema. No thyromegaly. CARDIOVASCULAR: S1 and S2 present. No murmurs, rubs, or gallops. PULMONARY: Chest is clear to auscultation, no wheezing or crackles. ABDOMEN: Soft, nontender, nondistended, normoactive bowel sounds. No palpable organomegaly. MUSCULOSKELETAL: No joint swelling or deformity. EXTREMITIES: No cyanosis, clubbing, or pedal edema. NEUROLOGICAL: Gross neurological examination did not reveal any focal deficits. SKIN: No rashes. Results CBC & Chem 7: 02/17/18 10:34 02/16/18 12:39 Labs: Abnormal Lab Results - Last 24 Hours (Table) 02/16/18 02/16/18 02/17/18 Range/Units 12:39 19:34 10:34 RBC 3.69 L (3.80-5.40) m/uL Hgb 7.9 L 7.7 L (11.4-16.0) gm/dL Hct 27.5 L 25.9 L (34.0-46.0) % MCV 72.1 L 70.3 L (80.0-100.0) fL MCH 20.7 L 20.8 L (25.0-35.0) pg MCHC 28.7 L 29.6 L (31.0-37.0) g/dL RDW 16.1 H 16.2 H (11.5-15.5) % Crossmatch See Detail Thrombosis Risk Factor Assmnt - Choose All That Apply Each Factor Represents 1 point: Obesity (BMI >25) Each Risk Factor Represents 2 Points: Age 61-74 years Thrombosis Risk Factor Assessment Total Risk Factor Score: 3 Thrombosis Risk Factor Assessment Level: Moderate Risk Assessment and Plan Plan: -Symptomatically anemia: Secondary to acute GI bleed from upper GI bleed 3. Patient is on Protonix upper GI endoscopy tomorrow -Degenerative joint disease primary osteoarthritis: Will use Tylenol and avoid nonsteroidal anti-inflammatory medicines at this time. -Hypertension -And anxiety disorder For above-mentioned chronic medical problems patient will be resumed and continued on appropriate home medications.
[2018-02-17] MEDS ORDERED: PEG 3350-NA SULF,BICARB,CL/KCL 4,000 ML BOTTLE PO ONE (16:00)
[2018-02-17] MEDS ORDERED: LORazepam 1 MG TAB PO PRN (17:57)
[2018-02-17 23:32] VITALS: RESP 20
[2018-02-18 06:14] VITALS: BP 141/68; PULSE 93; TEMP 98
[2018-02-18] MEDS ORDERED: LABETALOL 5 MG/ML VIAL MDV ONE (07:57)
[2018-02-18] MEDS ORDERED: LIDOCAINE 1% INJ 10MG/ML (20 ML MDV) ONE (07:57)
[2018-02-18] MEDS ORDERED: PROPOFOL 10 MG/ML 20 ML VIAL IV ONE (07:57)
[2018-02-18] MEDS ORDERED: MIDAZOLAM 2 MG/2 ML VIAL ONE (07:57)
[2018-02-18] MEDS ORDERED: IV FLUID CONTINUATION 1,000 ML IV ONE (08:16)
--- NOTE | 2018-02-18 08:31 | P.PCN ---
Date of Procedure: 02/18/18 Procedure(s) Performed: Brief history: Patient is a pleasant 66-year-old white female, scheduled for an elective upper endoscopy as well as colonoscopy as a part of evaluation of severe symptomatic microcytic anemia with a hemoglobin of 6.5 g/dL. She denies any GI symptoms. Procedure performed: Esophagogastroduodenoscopy with biopsy Colonoscopy with snare polypectomy Preoperative diagnosis: Severe microcytic hypochromic anemia [place] [facility] [facility] [place]: After informed consent was obtained from the patient was brought into the endoscopy unit and IV sedation was administered by anesthesia under continuous monitoring. Initially upper endoscopy was done. The Olympus GF 160 video endoscope was inserted inserted into the mouth and esophagus intubated without any difficulty and was gradually advanced into the stomach and duodenum and carefully examined. The bulb and second part of the duodenum appeared normal. The scope was then withdrawn into the stomach adequately insufflated with air and upon careful examination the antrum had 2 ulcerations the largest measuring about 3 cm and superficial with no active bleeding. The other ulcer was linear measuring 2 cm in length with no active bleeding. There was antral erosive gastritis seen. The body, cardia and fundus appeared normal. On retroflexion there was a moderate size hiatal hernia noted. The scope was then withdrawn into the esophagus. The GE junction was located at 35 cm to the incisors. It appeared regular with no erythema erosions or ulcerations. Rest of the esophagus appeared normal. Patient tolerated the procedure well. At this time the patient continued to remain sedation. Initial digital rectal examination was normal. Olympus CF 160 video colonoscope was then inserted into the rectum and the scope could not be advanced beyond the sigmoid colon. The scope was removed and a pediatric colonoscope was then and his rectum and gradually advanced to the cecum without any difficulty. Careful examination was performed as the scope was gradually being withdrawn. The prep was excellent. The cecum, ascending colon, transverse colon, descending colon, sigmoid colon and rectum appeared normal. In the proximal rectum there were 2 small polyps measuring 5 mm in size both of which were removed by snare polypectomy. Scattered sigmoid diverticulosis seen. Retroflexion was performed in the rectum and no lesions were noted. Patient tolerated the procedure well. Impression: 1. Upper endoscopy revealed 2 superficial antral ulcerations measuring 2 cm and 3 cm with no active bleeding. Moderate size hiatal hernia with Rafael erosions also seen. 2. Colonoscopy revealed 5 mm 2 pedunculated proximal rectal polyps status post polypectomy and scattered sigmoid diverticulosis Recommendations: Findings of this examination were discussed with the patient as well as her family. She was advised to follow with the biopsy results. She'll be continued on Protonix 40 mg daily and she was advised to avoid NSAIDs. If the biopsy of the colon polyps showed tubular adenoma, she can have a repeat colonoscopy in 5 years
[2018-02-18] MEDS ORDERED: PANTOPRAZOLE 40 MG TABLET PO SCH (08:45)
[2018-02-18 09:33] LABS: Anisocytosis Slight; Basophils % (A) 1 %; Eosinophils # (A) 0.1 k/uL (0-0.7); Eosinophils % (A) 2 %; HGB 7.7 gm/dL (11.4-16.0); Hypochromasia Marked; Lymphocytes # (A) 0.9 k/uL (1.0-4.8); Lymphocytes % (A) 15 %; MCH 21.1 pg (25.0-35.0); MCHC 29.6 g/dL (31.0-37.0); MCV 71.4 fL (80.0-100.0); Mean Platelet Volume 6.9; Microcytosis Moderate; Monocytes # (A) 0.3 k/uL (0-1.0); Monocytes % (A) 6 %; Neutrophils # (A) 4.6 k/uL (1.3-7.7); Neutrophils % (A) 77 %; Platelet Count 336 k/uL (150-450); Poikilocytosis Moderate; RBC 3.65 m/uL (3.80-5.40); RDW 16.6 % (11.5-15.5); WBC 6.1 k/uL (3.8-10.6)
[2018-02-18] MEDS: DEXTROSE 5% IN WATER 1,000 ML IV SCH (15:47)
--- NOTE | 2018-02-18 16:14 | P.DS ---
Providers Date of admission: 02/16/18 14:41 Attending physician: Becca Blackburn Consults: 02/16/18 23:51 Consult Physician Routine Consulting Provider: Clayton Castañeda Consult Reason/Comments: Anemia, low hemogolobin Do you want consulting provider notified?: Yes, Notify in am Primary care physician: [facility] Course: 67-year-old present female came in with the GI bleed patient has upper GI bleed underwent upper GI endoscopy colonoscopy upper GI endoscopy showed 2 superficial antral ulcerations which are not bleeding and the patient bleeding is secondary to nonsteroidal anti-inflammatory is and this aids are completely discontinued and the aspirin was held as well patient can resume her aspirin about a month later. Patient was given prescription for tramadol to avoid other nonsteroidal anti-inflammatory is patient will also take extra strength Tylenol for her pain. Colonoscopy showed rectal polyps which are removed. Patient has significant that anemia microcytic mostly probably iron deficiency patient is being discharged on iron supplementation and also medications for constipation. PHYSICAL EXAMINATION: GENERAL: The patient is alert and oriented x3, not in any acute distress. Well developed, well nourished. HEENT: Pupils are round and equally reacting to light. EOMI. No scleral icterus. Does have conjunctival pallor. Normocephalic, atraumatic. No pharyngeal erythema. No thyromegaly. CARDIOVASCULAR: S1 and S2 present. No murmurs, rubs, or gallops. PULMONARY: Chest is clear to auscultation, no wheezing or crackles. ABDOMEN: Soft, nontender, nondistended, normoactive bowel sounds. No palpable organomegaly. MUSCULOSKELETAL: No joint swelling or deformity. EXTREMITIES: No cyanosis, clubbing, or pedal edema. NEUROLOGICAL: Gross neurological examination did not reveal any focal deficits. SKIN: No rashes. Assessment and Plan Plan: -Symptomatic anemia: Secondary to acute GI bleed from upper GI bleed, peptic ulcer disease nonsteroidal anti-inflammatory inflammatory medications induced. -Degenerative joint disease primary osteoarthritis: Will use Tylenol and avoid nonsteroidal anti-inflammatory medicines except for tramadol -Hypertension -And anxiety disorder Patient Condition at Discharge: Stable Plan - Discharge Summary New Discharge Prescriptions: New Omeprazole [PriLOSEC] 40 mg PO ISABEL-MARITAKYuri #30 jess. Ferrous Sulfate [Feosol] 325 mg PO BID #60 tab Polyethylene Glycol 3350 [Miralax] 17 gm PO DAILY PRN #30 packet PRN Reason: Constipation traMADol HCl [Ultram] 50 mg PO Q4HR PRN 3 Days #18 tab PRN Reason: Pain Discontinued Potassium Chloride [Klor-Con 20] 20 meq PO DAILY Aspirin 81 mg PO DAILY Ibuprofen [Motrin Ib] 400 mg PO Q4H PRN PRN Reason: Pain No Action LORazepam [Ativan] 1 mg PO HS Atenolol [Tenormin] 25 mg PO HS Losartan [Cozaar] 50 mg PO DAILY PARoxetine HCL [Paxil] 40 mg PO DAILY Discharge Medication List LORazepam [Ativan] 1 mg PO HS 10/10/14 [History] Atenolol [Tenormin] 25 mg PO HS 12/05/14 [History] Losartan [Cozaar] 50 mg PO DAILY 12/29/16 [History] PARoxetine HCL [Paxil] 40 mg PO DAILY 12/29/16 [History] Ferrous Sulfate [Feosol] 325 mg PO BID #60 tab 02/18/18 [Rx] Omeprazole [PriLOSEC] 40 mg PO AC-BRKFST #30 capsule. 02/18/18 [Rx] Polyethylene Glycol 3350 [Miralax] 17 gm PO DAILY PRN #30 packet 02/18/18 [Rx] traMADol HCl [Ultram] 50 mg PO Q4HR PRN 3 Days #18 tab 02/18/18 [Rx] Follow up Appointment(s)/Referral(s): Mikhail Bellamy DO [Primary Care Provider] - 3 Days Patient Instructions/Handouts: Peptic Ulcer (DC), Hiatal Hernia (DC), Diverticulosis (DC), Colorectal Polyps (DC) Activity/Diet/Wound Care/Special Instructions: Regular diet as tolerated Activity as tolerated Discharge Disposition: HOME SELF-CARE
--- NOTE | 2018-02-28 09:57 | CDI ---
Last Revision, July 2017 Documentation Clarification Form Date: 02/28/18 From: JOS Luna Phone: If you have question, contact Jocelynn Bah Senior Technical Manager at M-F 8:30 am to 6pm Admit Date: 02/16/2018 2:41:00 PM Patient Name: Lizzy Griffiths Visit Number: [id number] Discharge Date: 02/18/18 ATTENTION: The Clinical Documentation Specialists (CDI) and [facility] Coding Staff appreciate your assistance in clarifying documentation. Please respond to the clarification below the line at the bottom and electronically sign. The CDI & [facility] Coding staff will review the response and follow-up if needed. Please note: Queries are made part of the Legal Health Record. If you have any questions, please contact the author of this message via ITS. Dr. Chiara Norris Per the procedure note an EGD with biopsy was performed. The site of the biopsy isnt clarified in the procedure note Please document the site of the biopsy: o GE junction o Duodenum o Esophagus o Stomach o Pylorus (includes antrum, canal, sphincter) o Small intestine Thank you for your time. MTDD
== END 2018-02-18 15:56 | disposition home or self-care (01) | DRG 812 ==
LOC: EC 12:02 → 4MS4W 14:41
PROVIDERS: ADMIT Internal Medicine; ATTEND Internal Medicine
PROC: 0DBP8ZX Excision of Rectum, Via Natural or Artificial Opening Endoscopic, Diagnostic (ICD-10-PCS; principal; 2018-02-18 07:30)
PROC: 0DB78ZX Excision of Stomach, Pylorus, Via Natural or Artificial Opening Endoscopic, Diagnostic (ICD-10-PCS; principal; 2018-02-18 07:30)
DX: D50.9 Iron deficiency anemia, unspecified (principal); K21.9 Gastro-esophageal reflux disease without esophagitis; I10 Essential (primary) hypertension; M19.90 Unspecified osteoarthritis, unspecified site; Z96.652 Presence of left artificial knee joint; F41.9 Anxiety disorder, unspecified; K59.00 Constipation, unspecified; Z87.891 Personal history of nicotine dependence; Z82.49 Family history of ischemic heart disease and other diseases of the circulatory system; K44.9 Diaphragmatic hernia without obstruction or gangrene; K25.9 Gastric ulcer, unspecified as acute or chronic, without hemorrhage or perforation; K29.60 Other gastritis without bleeding; K57.30 Diverticulosis of large intestine without perforation or abscess without bleeding; K62.1 Rectal polyp; Z88.5 Allergy status to narcotic agent; M19.91 Primary osteoarthritis, unspecified site; Z82.0 Family history of epilepsy and other diseases of the nervous system; Z79.82 Long term (current) use of aspirin
CPT/HCPCS: 36415; 43239; 45385; 80053; 82272; 82550; 82553; 83735; 84484; 85025; 85610; 85730; 86850; 86900; 86901; 86920; 88305; 96360; 99285

== ENCOUNTER 2019-04-04 13:27 | Emergency (ER) | payer MEDICARE ==
--- NOTE | 2019-04-04 14:03 | ED ---
Recheck HPI - General Chief Complaint: Recheck/Abnormal Lab/Rx Stated Complaint: accidental overdose Time Seen by Provider: 04/04/19 13:59 Source: patient Mode of arrival: ambulatory Limitations: no limitations - History of Present Illness Initial Comments: Very pleasant, well appearing 68-year-old female with history of hypertension, anemia and low potassium currently not being treated as levels have normalized presented for episodic lightheadedness 2 days. Patient states that she has a large basket where she keeps her pill bottles she states they're usually and specific positions. Patient states the past 3 days she really she has been mixing up her when necessary Ativan with her atenolol. Patient states she has been taking atenolol times throughout the day. She states shortly after she has felt lightheaded, presyncopal. Denies any history of syncope. Patient denies any chest pain or short of breath at these times. Patient states that she only noted a short time after taking the medication of which she thought was Ativan. Patient states that she currently does not have any symptoms. Patient is brought in by her daughter. Patient's blood pressure upon arrival within normal limits. Patient has no other complaints. Patient requesting discharge in 20 minutes so she can catch her show. - Related Data Home Medications Medication Instructions Recorded Confirmed LORazepam [Ativan] 1 mg PO HS 10/10/14 02/16/18 Atenolol [Tenormin] 25 mg PO HS 12/05/14 02/16/18 Losartan [Cozaar] 50 mg PO DAILY 12/29/16 02/16/18 PARoxetine HCL [Paxil] 40 mg PO DAILY 12/29/16 02/16/18 Previous Rx's Medication Instructions Recorded Ferrous Sulfate [Feosol] 325 mg PO BID #60 tab 02/18/18 Omeprazole [PriLOSEC] 40 mg PO ISABEL-MARITAKFSYuri #30 jess. 02/18/18 Polyethylene Glycol 3350 [Miralax] 17 gm PO DAILY PRN #30 packet 02/18/18 traMADol HCl [Ultram] 50 mg PO Q4HR PRN 3 Days #18 tab 02/18/18 Allergies Allergy/AdvReac Type Severity Reaction Status Date / Time acetaminophen AdvReac Unknown Verified 04/04/19 13:53 [From Darvocet-N] propoxyphene AdvReac Unknown Verified 04/04/19 13:53 [From Rachell] Review of Systems ROS Statement: Those systems with pertinent positive or pertinent negative responses have been documented in the HPI. ROS Other: All systems not noted in ROS Statement are negative. Past Medical History Past Medical History: GERD/Reflux, Hypertension, Osteoarthritis (OA) Additional Past Medical History / Comment(s): PAST HX ANEMIA History of Any Multi-Drug Resistant Organisms: None Reported Past Surgical History: Joint Replacement Additional Past Surgical History / Comment(s): 10/13/14 Total L knee arthroplasty, BILAT BREAST LUMPECTOMIES(BENIGN). COLONOSCOPY; Lipomas removed L side of neck, lower back Past Anesthesia/Blood Transfusion Reactions: No Reported Reaction Past Psychological History: Anxiety Smoking Status: Former smoker Past Alcohol Use History: Rare Past Drug Use History: None Reported - Past Family History Brother(s) Family Medical History: Cancer Mother Family Medical History: Dementia, Hypertension Additional Family Medical History / Comment(s): parkinson's, Mother at age 81 or 82 yrs old. Father Family Medical History: No Reported History, Myocardial Infarction ([place]) Additional Family Medical History / Comment(s): Father at age 86 yrs of [place] General Exam - General Exam Comments Initial Comments: General: The patient is awake and alert, in no distress, and does not appear acutely ill. Eye: +3 mm pupils are equal, round and reactive to light, extra-ocular movements are intact. No nystagmus. There is normal conjunctiva bilaterally. No signs of icterus. Ears, nose, mouth and throat: There are moist mucous membranes and no oral lesions. Neck: The neck is supple, there is no tenderness or JVD. Cardiovascular: There is a regular rate and rhythm. No murmur, rub or gallop is appreciated. Respiratory: Lungs are clear to auscultation, respirations are non-labored, breath sounds are equal. No wheezes, stridor, rales, or rhonchi. Musculoskeletal: Normal ROM, no tenderness. Strength 5/5. Sensation intact. Pulses equal bilaterally 2+. Neurological: A&O x 3. CN II-XII intact, There are no obvious motor or sensory deficits. Coordination appears grossly intact. Speech is normal. Skin: Skin is warm and dry and no rashes or lesions are noted. Psychiatric: Cooperative, appropriate mood & affect, normal judgment. Limitations: no limitations Course Vital Signs 04/04/19 04/04/19 13:48 14:33 Temperature 99.3 F Pulse Rate 65 79 Respiratory 20 16 Rate Blood Pressure 158/73 155/81 O2 Sat by Pulse 99 99 Oximetry Medical Decision Making - Medical Decision Making Appearing 5-year-old female presented for a lightheaded sensation after overdosing on prescription medication of atenolol. This was not done on purpose. Patient states she actually mixed up her bottles. Patient states the lightheaded sensation occurred after taking her what she thought was Ativan. That was said to be 25 mg of atenolol. Patient's last dose was between 10-11AM. She denies current symptoms. Upon arrival patient appears well blood pressure within acceptable limits. Heart rate greater than 60 bpm. EKG no acute findings. Given patient's history of anemia as well as potassium basic labs or studies were obtained revealing normal levels. No acute electrolyte her lab derangement. Given patient's history I feel lightheaded sensation most likely medication induced. Patient is to return if lightheadedness persists despite proper dosing of medication. Patient verbalized understanding she states she is ready and wants to go home. Patient was discharged appearing well after discussed the case by attending provider Dr. Jeff - Lab Data Result diagrams: 04/04/19 14:17 04/04/19 14:17 Lab Results 04/04/19 04/04/19 Range/Units 14:17 14:17 WBC 8.4 (3.8-10.6) k/uL RBC 4.35 (3.80-5.40) m/uL Hgb 13.3 (11.4-16.0) gm/dL Hct 40.0 (34.0-46.0) % MCV 91.9 (80.0-100.0) fL MCH 30.6 (25.0-35.0) pg MCHC 33.3 (31.0-37.0) g/dL RDW 12.7 (11.5-15.5) % Plt Count 319 (150-450) k/uL Neutrophils % 70 % Lymphocytes % 21 % Monocytes % 5 % Eosinophils % 2 % Basophils % 0 % Neutrophils # 5.9 (1.3-7.7) k/uL Lymphocytes # 1.8 (1.0-4.8) k/uL Monocytes # 0.4 (0-1.0) k/uL Eosinophils # 0.2 (0-0.7) k/uL Basophils # 0.0 (0-0.2) k/uL Sodium 139 (137-145) mmol/L Potassium 4.5 (3.5-5.1) mmol/L Chloride 110 H (98-107) mmol/L Carbon Dioxide 20 L (22-30) mmol/L Anion Gap 9 mmol/L BUN 18 H (7-17) mg/dL Creatinine 0.86 (0.52-1.04) mg/dL Est GFR (CKD-EPI)AfAm 80 (>60 ml/min/1.73 sqM) Est GFR (CKD-EPI)NonAf 69 (>60 ml/min/1.73 sqM) Glucose 110 H (74-99) mg/dL Calcium 9.3 (8.4-10.2) mg/dL Total Bilirubin 0.5 (0.2-1.3) mg/dL AST 23 (14-36) U/L ALT 12 (9-52) U/L Alkaline Phosphatase 91 (38-126) U/L Total Protein 7.1 (6.3-8.2) g/dL Albumin 4.1 (3.5-5.0) g/dL - EKG Data EKG Comments: Ventricular rate 56 bpm, MD interval 154 ms, QRS duration 90 ms, QT/QTc 442/426 ms. This is sinus bradycardia. No ST elevation or depression noted. Non specific T-wave. Disposition Clinical Impression: Accidental overdose, Light headed Disposition: HOME SELF-CARE Condition: Good Instructions (If sedation given, give patient instructions): Lightheadedness (ED) Additional Instructions: Please use medication as discussed. Please take medications as prescribed. Take blood pressure and heart rate before taking medication tonight, 120/80 normal BP, 60BPM normal heart rate if below these values please hold medications. If you need light headed please hold medications. If lightheaded sensation persistent despite appropriate medications dosing please return to the ER> Please return to emergency room if the symptoms increase or worsen or for any other concerns. Is patient prescribed a controlled substance at d/c from ED?: No Referrals: Mikhail Bellamy DO [Primary Care Provider] - 1-2 days Time of Disposition: 15:01
[2019-04-04 14:34] VITALS: RESP 16
[2019-04-04 14:41] LABS: Basophils % (A) 0 %; Eosinophils # (A) 0.2 k/uL (0-0.7); Eosinophils % (A) 2 %; HGB 13.3 gm/dL (11.4-16.0); Lymphocytes # (A) 1.8 k/uL (1.0-4.8); Lymphocytes % (A) 21 %; MCH 30.6 pg (25.0-35.0); MCHC 33.3 g/dL (31.0-37.0); MCV 91.9 fL (80.0-100.0); Mean Platelet Volume 7.5; Monocytes # (A) 0.4 k/uL (0-1.0); Monocytes % (A) 5 %; Neutrophils # (A) 5.9 k/uL (1.3-7.7); Neutrophils % (A) 70 %; Platelet Count 319 k/uL (150-450); RBC 4.35 m/uL (3.80-5.40); RDW 12.7 % (11.5-15.5); WBC 8.4 k/uL (3.8-10.6)
[2019-04-04 14:54] LABS: Albumin 4.1 g/dL (3.5-5.0); Calcium 9.3 mg/dL (8.4-10.2); Potassium 4.5 mmol/L (3.5-5.1); Total Bilirubin 0.5 mg/dL (0.2-1.3); Total Protein 7.1 g/dL (6.3-8.2)
[2019-04-04 15:11] VITALS: BP 135/68; PULSE 76; TEMP 98.3
== END 2019-04-04 15:08 | disposition home or self-care (01) ==
LOC: EC 13:27
DX: T44.7X1A Poisoning by beta-adrenoreceptor antagonists, accidental (unintentional), initial encounter (principal); I10 Essential (primary) hypertension; M19.90 Unspecified osteoarthritis, unspecified site; F41.9 Anxiety disorder, unspecified; Z87.891 Personal history of nicotine dependence; Z88.5 Allergy status to narcotic agent; Z88.6 Allergy status to analgesic agent; Z79.899 Other long term (current) drug therapy; Z96.652 Presence of left artificial knee joint
CPT/HCPCS: 36415; 80053; 85025; 93005; 99284

== ENCOUNTER → 2021-03-05 | Outpatient (CLI) | payer MEDICARE ==
[2021-03-05 09:45] LABS: Basophils # (A) 0.1 k/uL (0-0.2); Basophils % (A) 1 %; Eosinophils # (A) 0.4 k/uL (0-0.7); Eosinophils % (A) 5 %; HGB 13.9 gm/dL (11.4-16.0); Lymphocytes # (A) 1.4 k/uL (1.0-4.8); Lymphocytes % (A) 19 %; MCH 32.1 pg (25.0-35.0); MCV 94.4 fL (80.0-100.0); Monocytes # (A) 0.6 k/uL (0-1.0); Monocytes % (A) 8 %; Neutrophils # (A) 4.6 k/uL (1.3-7.7); Neutrophils % (A) 65 %; Platelet Count 231 k/uL (150-450); RBC 4.34 m/uL (3.80-5.40); RDW 12.3 % (11.5-15.5); WBC 7.1 k/uL (3.8-10.6)
[2021-03-05 09:49] LABS: Prothrombin Time 10.7 sec (9.0-12.0)
[2021-03-05 10:08] LABS: Potassium 3.7 mmol/L (3.5-5.1)
== END | disposition home or self-care (01) ==
LOC: LABPAT 08:28
PROVIDERS: ATTEND Orthopaedic Surgery
DX: Z01.812 Encounter for preprocedural laboratory examination (principal); M16.11 Unilateral primary osteoarthritis, right hip
CPT/HCPCS: 36415; 80051; 85025; 85610; 87070

== ENCOUNTER 2021-03-08 06:29 | Day surgery (SDC) | payer MEDICARE ==
[2021-03-05 12:27] VITALS: BMI 29.4
--- NOTE | 2021-03-07 10:45 | HP ---
HISTORY AND PHYSICAL REASON FOR ADMISSION: Surgery scheduled for 03/11/2021. Lizzy Griffiths is a 70-year-old patient seen with symptomatic right hip osteoarthritis. We discussed options for treatment. She elected proceed with direct anterior right total hip arthroplasty. Consent was obtained. PAST MEDICAL HISTORY: Hypertension, gastroesophageal reflux disease. PAST SURGICAL HISTORY: Breast biopsy, hysterectomy. MEDICATIONS: Atenolol, losartan, omeprazole. ALLERGIES: NONE. SOCIAL HISTORY: She smokes about a quarter pack of cigarettes daily. PHYSICAL EXAMINATION: Evaluation of the right hip, she has very limited range of motion with severe pain. There is diffuse tenderness along the hip girdle. Positive hip impingement sign. Straight leg raise negative. Distal neurovascular exam is intact. RADIOGRAPHS: Radiographs of the right hip reveals severe osteoarthritic changes. IMPRESSION: 1. Right hip osteoarthritis. 2. Hypertension. 3. Gastroesophageal reflux disease. PLAN: Direct anterior right total hip arthroplasty. Surgery 03/08/2021. MMODL / IJN: [id number] /
[~2021-03-08 06:29] MED LIST changes: +ACETAMINOPHEN TAB 500 MG TAB PO PRN; -BUPIVACAINE (PF) 0.5% 30 ML VIAL SQ ONE; -DEXAMETHASONE SOD PHOSPHATE 10 MG/ML 1 ML VIAL IV ONE; +DEXAMETHASONE SOD PHOSPHATE 4 MG/ML 1 ML VIAL IV ONE; -HEPARIN SODIUM,PORCINE 5,000 UNIT/ML 1 ML VIAL SQ ONE; -HYDROmorphone 0.5 MG/0.5 ML SYRINGE IVP PRN; +LIDOCAINE 1% (10MG/ML) FOR IV START INTRADERMA PRN; +MELOXICAM 7.5 MG TAB PO PRN; +MIDAZOLAM 2 MG/2 ML VIAL IV PRN; -MORPHINE SULFATE 2 MG/ML SYRINGE IV PRN; -ONDANSETRON 4 MG/2 ML VIAL IVP PRN; -Pre Op ABX Message 1 EACH MISC MISCELLANE ONE; +ROPIVACAINE/EPI/CLONIDINE/KET 50 ML SYRINGE MISCELLANE PRN; +TRANEXAMIC ACID 1,000 MG in SODIUM CHLORIDE 0.9% 100 ML IVPB PRN
[2021-03-08] MEDS ORDERED: MIDAZOLAM 2 MG/2 ML VIAL IVP ONE (07:20)
[2021-03-08] MEDS ORDERED: LIDOCAINE 1% INJ 10MG/ML (20 ML MDV) ONE (07:26)
[2021-03-08] MEDS ORDERED: SODIUM CHLORIDE 0.9% 100 ML BAG ONE (07:26)
[2021-03-08] MEDS ORDERED: PHENYLEPHRINE-0.9% NACL SYG 1,000 MCG/10 ML SYRINGE ONE (07:26)
[2021-03-08] MEDS ORDERED: MIDAZOLAM 2 MG/2 ML VIAL ONE (07:26)
[2021-03-08] MEDS ORDERED: ROCURONIUM 10 MG/ML (5 ML VIAL) IV ONE (07:26)
[2021-03-08] MEDS ORDERED: ePHEDrine SULFATE/0.9% NACL/PF 50 MG/5 ML SYRINGE IV ONE (07:26)
[2021-03-08] MEDS ORDERED: PROPOFOL 10 MG/ML 20 ML VIAL IV ONE (07:26)
[2021-03-08] MEDS ORDERED: HYDROmorphone (PF) 1 MG/ML ONE (07:26)
[2021-03-08] MEDS ORDERED: SUCCINYLCHOLINE CHLORIDE 100 MG/5 ML SYR IV ONE (07:26)
[2021-03-08] MEDS ORDERED: TRANEXAMIC ACID 1,000 MG/10 ML VIAL ONE (07:26)
[2021-03-08] MEDS ORDERED: fentaNYL (PF) 50 MCG/ML 2 ML AMP ONE (07:26)
[2021-03-08] MEDS ORDERED: GLYCOPYRROLATE 0.2 MG/ML 2 ML VIAL ONE (07:26)
[2021-03-08] MEDS ORDERED: NEOSTIGMINE 1 MG/ML 10 ML VIAL ONE (07:26)
[2021-03-08] MEDS ORDERED: ceFAZolin 1,000 MG in SODIUM CHLORIDE 0.9% 1,000 ML IRRIGATION ONE (08:05)
--- NOTE | 2021-03-08 09:08 | XR ---
Fluoroscopy INDICATION: Pain FINDINGS: Fluoroscopy time: 23 seconds. Images obtained: 1. IMPRESSIONS: 1. Documentation of fluoroscopy.
[2021-03-08] MEDS ORDERED: HYDROcodone/APAP 5-325MG 1 EACH TAB PO PRN ×2 (09:18)
[2021-03-08] MEDS ORDERED: ONDANSETRON 4 MG/2 ML VIAL IVP PRN (09:18)
[2021-03-08] MEDS ORDERED: LACTATED RINGERS 1,000 ML IV ONE ×3 (09:18→10:21)
[2021-03-08] MEDS ORDERED: HYDROmorphone 0.5 MG/0.5 ML SYRINGE IVP PRN ×2 (09:18)
[2021-03-08] MEDS ORDERED: HYDROmorphone 0.2 MG/1 ML SYRINGE IM PRN (09:18)
[2021-03-08] MEDS ORDERED: NALOXONE 0.4 MG/ML 1 ML VIAL IV PRN (09:18)
--- NOTE | 2021-03-08 09:18 | P.OP ---
Date of Procedure: 03/08/21 Preoperative Diagnosis: Right hip osteoarthritis Postoperative Diagnosis: Right hip osteoarthritis Procedure(s) Performed: Direct anterior right total hip arthroplasty Implants: 1. Depuy Corail 125 standard collar size 13 press-fit femoral stem 2. Depuy Proctor 52 mm multi hole press-fit acetabular shell 3. Depuy Proctor polyethylene acetabular liner neutral 36 mm ID 52 mm OD 4. Biolox delta ceramic femoral head +1.5 36 mm Anesthesia: GABBYA, local Surgeon: Jaime Herring Medical Biller/Coder #1: Freddy Castaneda Estimated Blood Loss (ml): 95 Pathology: other (Femoral head) Condition: stable Disposition: PACU Indications for Procedure: 70-year-old patient seen with symptomatic right hip osteoarthritis. After treatment options were discussed, she elected to proceed with direct anterior total hip arthroplasty. Operative Findings: See description of procedure Description of Procedure: The patient was taken to the operative suite. Patient underwent a general anesthetic by the department of anesthesia. Patient was then transferred to the [place] table. Patient was given preoperative IV antibiotics and TXA. Both lower extremities were placed in standard leg spars. The hip was then prepped and draped in the normal sterile orthopedic fashion. A standard anterior incision was made beginning 3 cm lateral and 1 cm distal to the ASIS extending 10 cm. Dissection was then carried down through the subcutaneous soft tissues down to the fascia overlying the tensor fascia apple. An incision was now made through the fascia. Careful dissection was taken down exposing the tensor fascia apple muscle. A Cobra retractor was now placed along the medial femoral neck and a second one along the lateral femoral neck. The venous circumflex vessels were now identified, cauterized and clipped. We identified the anterior hip capsule. An incision was made through the hip capsule along the lateral border. I performed a partial anterior capsulectomy. Retractors were now placed around the femoral neck itself. A femoral neck cut was now made with a sagittal saw. It was completed with an osteotome at the lateral neck area. The femoral head was now removed without difficulty. The extremity was now rotated to 60 of external rotation. It was locked in position. Residual labrum was now debrided out. Serial reaming was performed of the acetabulum while Freddy GAN assisted holding an anterior retractor for exposure. Once we reached the appropriate size and a trial was position and fit nicely. The appropriate size was now chosen opened and made available. It was introduced into the acetabulum without difficulty. The C-arm/fluoroscopy was now brought into the operative field. We made sure we had a true AP pelvic view. We now under direct C-arm/fluoroscopy introduced into the acetabular component with appropriate version and inclination. I held the cup in appropriate position while Freddy GAN used a mallet to seat the acetabular component. I noted the component now to be well seated and stable. Acetabular cup introduce her was removed. The C-arm was pulled back. An appropriate liner was introduced and clicked into position. It was felt to be stable. At this point retractors were removed. The extremity was now placed into 140 external rotation with no traction. The leg was now dropped to the ground and adducted. Appropriate retractors were now positioned along the proximal femur. We also placed our femoral look into position. Additional capsular releasing was performed to gain access to the proximal femur. We now used a box osteotome. A canal finder was now utilized. Serial broaching was now performed with the assistance of Freddy GAN tapping the broaches down with a mallet while held the broach in appropriate rotation and position. This was done until we reached the appropriate size with good overall rotational stability. Appropriate calcar planing was performed. A trial head/neck was placed into position. The hip was now reduced. The C- arm/fluoroscopy was brought back into the operative field. I obtained an AP pelvis demonstrating reasonable leg length alignment. I now evaluated trial components which appeared adequately sized. The C-arm/fluoroscopy was pulled back. Retractors were repositioned and the hip was dislocated. The leg was again taken down to the ground and adducted. Appropriate retractors were repositioned as well as the femoral hook. All trial components were removed. The femoral implant was opened along with the femoral head. The femoral implant was introduced on the appropriate handle into our pre-broached area. I held the component position well Freddy GAN used a mallet to seat the femoral component. The femoral component was now noted to be well seated and stable.. The femoral head was introduced with good positioning and fixation noted. Retractors were now removed. The hip was now reduced. There appeared be good positioning of the hip confirmed on intraoperative fluoroscopy. Spot films were obtained to document this. A second gram of TXA was given. The deep and superficial soft tissues were infiltrated with local analgesic. Bipolar cautery had been utilized intermittently through the procedure for hemostasis. The wound was irrigated copiously with pulse lavage mechanical irrigation. The fascia was repaired with Vicryl suture. The subcutaneous soft tissues were repaired in layers with Vicryl suture. The skin was approximated with pernio/Dermabond. Sterile dressings were applied. Patient was then awakened, transferred to a bed and taken to recovery in stable condition. Freddy GAN assisted with the complex procedure.
[2021-03-08] MEDS: HYDROmorphone 0.5 MG/0.5 ML SYRINGE IVP PRN ×3 (10:00→10:34)
[2021-03-08] MEDS ORDERED: ROPIVACAINE 0.2%-NS ON-Q PUMP 2 MG/ML EACH MISCELLANE ONE (10:10)
[2021-03-08 10:23] VITALS: RESP 16
[2021-03-08 12:18] VITALS: BP 124/63; PULSE 86; TEMP 97.4
== END 2021-03-08 14:19 | disposition home health service (06) ==
LOC: OR 06:29
PROVIDERS: ATTEND Orthopaedic Surgery
DX: M16.11 Unilateral primary osteoarthritis, right hip (principal); I10 Essential (primary) hypertension; K21.9 Gastro-esophageal reflux disease without esophagitis; F17.210 Nicotine dependence, cigarettes, uncomplicated; Z79.82 Long term (current) use of aspirin; F32.9 Major depressive disorder, single episode, unspecified; Z90.710 Acquired absence of both cervix and uterus; Z79.899 Other long term (current) drug therapy
CPT/HCPCS: 27130; 97110; 97161; 88300; 73501; 76000; C1776; J2250; J1100; J2710; J0690 ×2; J2405; J2001; J3010; J1170 ×2; J2370; J0330; J2704; J2795; 86850; 86900; 86901

== ENCOUNTER → 2024-04-12 | Outpatient (CLI) | payer MEDICARE ==
--- NOTE | 2024-04-16 11:39 | CA ---
Transthoracic Echo Report Name: Lizzy Griffiths Age: 73 Gender: F : 1950 Exam Date: 04/12/2024 13:17 Exam Location: [facility] Ht (in): 62 Wt (lb): 152 Ordering Physician: Attending/Referring Phys: Senior Partner Audra Murrieta RDCS Procedure CPT: Indications: Cardiac Hx: Technical Quality: Good Contrast 1: Total Dose (mL): Contrast 2: Total Dose (mL): MEASUREMENTS (Male / Female) Normal Values 2D ECHO LV Diastolic Diameter PLAX 4.1 cm 4.2 - 5.9 / 3.9 - 5.3 cm LV Systolic Diameter PLAX 2.7 cm IVS Diastolic Thickness 0.9 cm 0.6 - 1.0 / 0.6 - 0.9 cm LVPW Diastolic Thickness 1.1 cm 0.6 - 1.0 / 0.6 - 0.9 cm LV Relative Wall Thickness 0.5 LVOT Diameter 2.2 cm LV Diastolic Volume MOD BP 102.6 cm??? 67 - 155 / 56 - 104 cm??? LV Systolic Volume MOD BP 37.2 cm??? 22 - 58 / 19 - 49 cm??? LV Ejection Fraction MOD BP 63.7 % >= 55 % LV Cardiac Index MOD BP 3013.2 cm???/min???m??? LV Diastolic Volume MOD 4C 112.4 cm??? LV Systolic Volume MOD 4C 43.0 cm??? LV Ejection Fraction MOD 4C 61.7 % LV Cardiac Index MOD 4C 3199.8 cm???/min???m??? LV Diastolic Length 4C 8.3 cm LV Systolic Length 4C 7.2 cm LV Diastolic Volume MOD 2C 89.2 cm??? LV Systolic Volume MOD 2C 26.5 cm??? LV Ejection Fraction MOD 2C 70.3 % LV Cardiac Index MOD 2C 2890.1 cm???/min???m??? LV Diastolic Length 2C 7.9 cm LV Systolic Length 2C 5.7 cm LA Volume 82.5 cm??? 18 - 58 / 22 - 52 cm??? LA Volume Index 46.9 cm???/m??? 16 - 28 cm???/m??? Ascending Aorta Diameter 3.3 cm M-MODE LV Diastolic Diameter MM 4.6 cm 4.2 - 5.9 / 3.9 - 5.3 cm LV Systolic Diameter MM 2.9 cm LV Cardiac Index MM Teich 2966.8 cm???/min???m??? IVS Diastolic Thickness MM 1.1 cm 0.6 - 1.0 / 0.6 - 0.9 cm LVPW Diastolic Thickness MM 1.1 cm 0.6 - 1.0 / 0.6 - 0.9 cm LV Relative Wall Thickness MM 0.5 0.24 - 0.42 / 0.22 - 0.42 LV Mass Index MM 106.3 g/m??? 49 - 115 / 43 - 95 g/m??? DOPPLER AV Peak Velocity 156.9 cm/s AV Peak Gradient 9.9 mmHg AV Mean Velocity 112.2 cm/s AV Mean Gradient 5.5 mmHg AV Velocity Time Integral 36.0 cm LVOT Peak Velocity 128.9 cm/s LVOT Peak Gradient 6.6 mmHg LVOT Velocity Time Integral 27.1 cm LVOT Stroke Volume 100.6 cm??? LVOT Stroke Volume Index 59.2 ml/m??? LVOT Cardiac Index 4640.4 cm???/min???m??? AV Area Cont Eq vti 2.8 cm??? AV Area Cont Eq pk 3.0 cm??? MV Peak Velocity 124.0 cm/s MV Peak Gradient 6.1 mmHg MV Mean Velocity 76.9 cm/s MV Mean Gradient 2.8 mmHg MV Velocity Time Integral 30.9 cm MV Area PHT 3.4 cm??? Mitral E Point Velocity 93.7 cm/s Mitral A Point Velocity 91.5 cm/s Mitral E to A Ratio 1.0 MV Deceleration Time 221.1 ms TR Peak Velocity 244.2 cm/s TR Peak Gradient 23.8 mmHg Right Atrial Pressure 5.0 mmHg Pulmonary Artery Systolic Pressu 28.8 mmHg Right Ventricular Systolic Press 28.8 mmHg PV Peak Velocity 86.1 cm/s PV Peak Gradient 3.0 mmHg FINDINGS Left Ventricle Left ventricular ejection fraction is estimated at 55 to 60 %. Mildly increased left ventricular mass. . Left ventricular cavity size normal. No obvious regional wall motion abnormalities. Right Ventricle Normal right ventricular size and function. Right ventricular systolic pressure within normal limits. Right Atrium Normal right atrial size. Left Atrium Severely increased left atrial volume. Mildly increased left atrial area. Mitral Valve Structurally normal mitral valve. No evidence for mitral valve prolapse. No mitral stenosis. Trace mitral regurgitation. Aortic Valve Trileaflet aortic valve. No aortic valve stenosis or regurgitation. Tricuspid Valve Structurally normal tricuspid valve. No tricuspid stenosis. Trace tricuspid regurgitation. Pulmonic Valve Structurally normal pulmonic valve. No pulmonic regurgitation. Pericardium No pericardial effusion. Aorta Normal size aortic root and proximal ascending aorta. CONCLUSIONS 1. Normal left ventricular size and systolic function 2. Trace mitral and tricuspid regurgitation Previewed by: Dr. David Desir MD (Electronically Signed) Final Date: 12 April 2024 17:27
== END | disposition home or self-care (01) ==
LOC: RADECHMAIN 12:58
PROVIDERS: ATTEND Family Medicine
DX: R01.1 Cardiac murmur, unspecified (principal); I08.1 Rheumatic disorders of both mitral and tricuspid valves
CPT/HCPCS: 93306